=== PATIENT | female | born 1995 | race Caucasian/White ===

== ENCOUNTER 2017-11-09 21:19 | Emergency (ER) | payer OTHER ==
[~2017-11-09] VITALS: Ht 180.3 cm; Wt 129.3 kg
[~2017-11-09 21:19] MED LIST: ALBUTEROL2.5 MG/3 M INH/SOL; AMOX-CLAV 875-1 EACH PO; PREDNISONE20 M1 PO
[2017-11-09 21:24] VITALS: BP 146/80
== END 2017-11-10 00:52 | disposition admitted as inpatient to this hospital (09) ==
LOC: ERH 21:19
DX: R05 Cough (principal); R09.89 Other specified symptoms and signs involving the circulatory and respiratory systems
CPT/HCPCS: 81025